=== PATIENT | female | born 1975 | race Caucasian/White ===

== ENCOUNTER → 2016-10-22 | Outpatient (CLI) | payer OTHER ==
--- NOTE | 2016-10-23 09:08 | MM ---
Reason for exam: screening (asymptomatic). Baseline mammogram. History: Patient has history of other cancer at age 20. Took hormonal contraceptives for 12 years. Physical Findings: Nurse did not find any significant physical abnormalities on exam. MG Screening Mammo w CAD Bilateral CC and MLO view(s) were taken. There are scattered fibroglandular densities. There is no discrete abnormality. These results were verbally communicated with the patient and result sheet given to the patient on 10/22/16. ASSESSMENT: Negative, BI-RAD 1 RECOMMENDATION: Routine screening mammogram of both breasts in 1 year.
== END ==
LOC: RADMAMWWP 15:31
PROVIDERS: ATTEND Family Medicine
DX: Z12.31 Encounter for screening mammogram for malignant neoplasm of breast (principal)

== ENCOUNTER → 2017-11-25 | Outpatient (CLI) | payer OTHER ==
--- NOTE | 2017-11-25 10:15 | XR ---
EXAMINATION TYPE: XR chest 2V DATE OF EXAM: 11/25/2017 COMPARISON: NONE TECHNIQUE: PA and lateral views submitted. HISTORY: Chronic cough FINDINGS: The lungs are clear and there is no pneumothorax, pleural effusion, or focal pneumonia. IMPRESSION: 1. No acute process.
== END | disposition home or self-care (01) ==
LOC: RADXRMAIN 09:45
PROVIDERS: ATTEND Physician Assistant
DX: R05 Cough (principal)
CPT/HCPCS: 71046

== ENCOUNTER → 2018-02-10 | Outpatient (CLI) | payer OTHER ==
--- NOTE | 2018-02-10 11:41 | XR ---
EXAMINATION TYPE: XR KUB DATE OF EXAM: 02/10/2018 COMPARISON: NONE HISTORY: Low back pain TECHNIQUE: One view abdominal series FINDINGS: The osseous structures are intact. The bowel gas pattern is nonspecific. Extensive retained fecal de bris throughout the colon. SI joints symmetric. Arthropathy of the hips noted. Correlate for femoral acetabular. IMPRESSION: 1. Nonspecific abdomen. Correlate for constipation. 2. Arthropathy of the hips correlate for femoral acetabular impingement.
== END | disposition home or self-care (01) ==
LOC: RADXRMAIN 10:51
PROVIDERS: ATTEND Physician Assistant
DX: M12.852 Other specific arthropathies, not elsewhere classified, left hip (principal); M12.851 Other specific arthropathies, not elsewhere classified, right hip
CPT/HCPCS: 74018

== ENCOUNTER → 2018-03-15 | Outpatient (CLI) | payer OTHER ==
--- NOTE | 2018-03-15 22:02 | MR ---
EXAMINATION TYPE: MR hip RT wo con DATE OF EXAM: 03/15/2018 COMPARISON: NONE HISTORY: 42-year-old female with Right hip pain TECHNIQUE: Multiplanar, multisequence images of the right hip were obtained without IV contrast. FINDINGS: No evidence for hip fracture or AVN. Physiologic joint fluid on both sides. There is a mild effusion within the right greater than left SI joints. The rectus femoris and hamstring origins as well as the iliopsoas insertions are intact. There is int ermediate signal at the right gluteal insertion with trace effusion in the trochanteric bursa. There is a small anterior femoral head neck junction osseous excrescence noted linear signal within t he acetabular labrum along the anterior superior quadrant and small 5 mm paralabral cyst at the 1:00 position. Normal course, caliber, and signal intensity of the sciatic nerves. Uterus and ovaries are visualized. No abnormal fluid collection in the pelvis. No suspicious bone marrow replacement. IMPRESSION: 1. Mild right-sided gluteal insertional tendinosis. 2. Findings suggest a small anterior superior acetabular labral tear with a tiny 5 mm superior parala bral cyst on the right. 3. 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 Correlate with symptoms on physical exam testing. 4. Mild right greater than left SI joint effusions.
== END | disposition home or self-care (01) ==
LOC: RADMRIMAIN 06:01
PROVIDERS: ATTEND Orthopaedic Surgery
DX: M67.853 Other specified disorders of tendon, right hip (principal); M16.11 Unilateral primary osteoarthritis, right hip

== ENCOUNTER → 2019-07-07 | Outpatient (CLI) | payer OTHER ==
[2019-07-07 11:16] LABS: Basophils # (A) 0.1 k/uL (0-0.2); Basophils % (A) 1 %; Eosinophils # (A) 0.4 k/uL (0-0.7); Eosinophils % (A) 3 %; HCT 46.3 % (34.0-46.0); HGB 15.5 gm/dL (11.4-16.0); Lymphocytes # (A) 2.5 k/uL (1.0-4.8); Lymphocytes % (A) 22 %; MCH 31.8 pg (25.0-35.0); MCHC 33.4 g/dL (31.0-37.0); MCV 95.1 fL (80.0-100.0); Mean Platelet Volume 7.2; Monocytes # (A) 0.5 k/uL (0-1.0); Monocytes % (A) 5 %; Neutrophils # (A) 7.7 k/uL (1.3-7.7); Neutrophils % (A) 68 %; Platelet Count 282 k/uL (150-450); RBC 4.87 m/uL (3.80-5.40); RDW 12.3 % (11.5-15.5); WBC 11.4 k/uL (3.8-10.6)
[2019-07-07 16:20] LABS: African American GFR (CKD) 120.4 (60.0-200.0); Albumin 4.2 g/dL (3.80-4.90); Albumin/Globulin Ratio 2.1 (1.60-3.17); Anion Gap 6.9 mmol/L (4.00-12.00); BUN/Creat Ratio 21.43 Ratio (12.00-20.00); Calcium 9.1 mg/dL (8.7-10.3); Carbon Dioxide 28.1 mmol/L (21.6-31.8); Chol/HDL Ratio 3.91; Non-African American GFR(CKD) 103.9 (60.0-200.0); Potassium 4.6 mmol/L (3.5-5.5); Total Bilirubin 0.4 mg/dL (0.2-1.2); Total Protein 6.2 g/dL (6.2-8.2)
[2019-07-07 18:45] LABS: Hemoglobin A1C 8.5 % (4.0-6.0)
== END | disposition home or self-care (01) ==
LOC: LABWHC1 09:43
PROVIDERS: ATTEND Family Medicine
DX: Z00.00 Encounter for general adult medical examination without abnormal findings (principal)
CPT/HCPCS: 36415; 80053; 80061; 83036; 84443; 85025

== ENCOUNTER → 2020-08-09 | Outpatient (CLI) | payer OTHER ==
[2020-08-09 12:10] LABS: % Iron Saturation 21.13 (12.00-45.00); African American GFR (CKD) 119.6 (60.0-200.0); Albumin 4.3 g/dL (3.80-4.90); Albumin/Globulin Ratio 2.15 (1.60-3.17); Anion Gap 7.2 mmol/L (4.00-12.00); BUN/Creat Ratio 21.43 Ratio (12.00-20.00); Basophils # (A) 0.07 X 10*3/uL (0.00-0.10); Basophils % (A) 0.7 %; Calcium 9.6 mg/dL (8.7-10.3); Carbon Dioxide 26.8 mmol/L (21.6-31.8); Chol/HDL Ratio 5.05; Eosinophils # (A) 0.24 X 10*3/uL (0.04-0.35); Eosinophils % (A) 2.5 %; HCT 45.5 % (37.2-46.3); HGB 15.2 g/dL (12.0-15.0); LDL Cholesterol,Calculated 105.4 mg/dL (0.0-131.0); Lymphocytes # (A) 2.88 X 10*3/uL (0.90-5.00); Lymphocytes % (A) 29.8 %; MCHC 33.4 g/dL (32.0-37.0); MCV 95.8 fL (80.0-97.0); Mean Platelet Volume 9.8 fL (9.5-12.2); Monocytes # (A) 0.61 X 10*3/uL (0.20-1.00); Monocytes % (A) 6.3 %; Neutrophils # (A) 5.82 X 10*3/uL (1.80-7.70); Neutrophils % (A) 60.3 %; Non-African American GFR(CKD) 103.2 (60.0-200.0); Platelet Count 255 X 10*3/uL (140-440); Potassium 4.5 mmol/L (3.5-5.5); RBC 4.75 X 10*6/uL (4.10-5.20); RDW 12.4 % (11.5-14.5); Total Bilirubin 0.2 mg/dL (0.2-1.2); Total Protein 6.3 g/dL (6.2-8.2); VLDL Calculation 48.6 mg/dL (5.00-40.00); WBC 9.66 X 10*3/uL (4.50-10.00)
[2020-08-09 12:20] LABS: Ferritin 42.2 ng/mL (10.0-291.0)
[2020-08-09 16:23] LABS: Hemoglobin A1C 9.3 % (4.0-6.0)
== END | disposition home or self-care (01) ==
LOC: LABWHC1 07:24
PROVIDERS: ATTEND Family Medicine
DX: Z00.00 Encounter for general adult medical examination without abnormal findings (principal); N95.9 Unspecified menopausal and perimenopausal disorder; R53.83 Other fatigue
CPT/HCPCS: 36415; 80053; 80061; 82306; 82607; 82672; 82728; 83036; 83540; 83550; 84403; 84443; 85025

== ENCOUNTER → 2021-09-04 | Outpatient (CLI) | payer OTHER ==
[2021-09-04 14:20] LABS: Basophils # (A) 0.07 X 10*3/uL (0.00-0.10); Basophils % (A) 0.6 %; Eosinophils # (A) 0.22 X 10*3/uL (0.04-0.35); HCT 42.4 % (37.2-46.3); HGB 14.3 g/dL (12.0-15.0); Immature Grans, Automated 0.2 %; Lymphocytes # (A) 2.44 X 10*3/uL (0.90-5.00); Lymphocytes % (A) 22.2 %; MCH 31.9 pg (27.0-32.0); MCHC 33.7 g/dL (32.0-37.0); MCV 94.6 fL (80.0-97.0); Mean Platelet Volume 9.5 fL (9.5-12.2); Monocytes # (A) 0.54 X 10*3/uL (0.20-1.00); Monocytes % (A) 4.9 %; NRBC Per 100 WBC 0 /100 WBCS (0.0-0.0); Neutrophils # (A) 7.69 X 10*3/uL (1.80-7.70); Neutrophils % (A) 70.1 %; Platelet Count 230 X 10*3/uL (140-440); RBC 4.48 X 10*6/uL (4.10-5.20); WBC 10.98 X 10*3/uL (4.50-10.00)
[2021-09-04 14:59] LABS: ALT 27 U/L (8-44); AST 23 U/L (13-35); African American GFR (CKD) 120.2 (60.0-200.0); Albumin 4.1 g/dL (3.8-4.9); Albumin/Globulin Ratio 1.54 (1.60-3.17); Alkaline Phosphatase 66 U/L (41-126); BUN/Creat Ratio 23.74 Ratio (12.00-20.00); Calcium 9.2 mg/dL (8.7-10.3); Carbon Dioxide 22.9 mmol/L (20.0-27.5); Chloride 103 mmol/L (96-109); Chol/HDL Ratio 5.06 Ratio; Globulin 2.7 g/dL (1.6-3.3); Glucose 123 mg/dL (70-110); LDL Cholesterol,Calculated 134.1 mg/dL (0.0-131.0); Non-African American GFR(CKD) 103.7 (60.0-200.0); Potassium 4.2 mmol/L (3.5-5.5); Sodium 140 mmol/L (135-145); Total Protein 6.7 g/dL (6.2-8.2)
--- NOTE | 2021-09-05 14:40 | MM ---
Reason for exam: screening (asymptomatic). Last mammogram was performed 4 years and 10 months ago. History: Patient has history of other cancer at age 20. Took other hormone for 6 months. Physical Findings: A clinical breast exam by your physician is recommended on an annual basis and results should be correlated with mammographic findings. MG 3D Screening Mammo W/Cad Bilateral CC and MLO view(s) were taken. Prior study comparison: October 22, 2016, bilateral MG screening mammo w CAD. The breast tissue is heterogeneously dense. This may lower the sensitivity of mammography. Benign appearing calcifications in the left breast. No significant changes when compared with prior studies. ASSESSMENT: Benign, BI-RAD 2 RECOMMENDATION: Routine screening mammogram of both breasts in 1 year.
== END | disposition home or self-care (01) ==
LOC: RADMAMWWP 07:52
PROVIDERS: ATTEND Family Medicine
DX: Z00.00 Encounter for general adult medical examination without abnormal findings (principal); Z12.31 Encounter for screening mammogram for malignant neoplasm of breast
CPT/HCPCS: 77063; 77067; 80053; 80061; 84443; 85025

== ENCOUNTER 2021-10-03 06:54 | Day surgery (SDC) | payer OTHER ==
[2021-10-01 16:32] VITALS: BMI 30.2
[~2021-10-03 06:54] MED LIST: LACTATED RINGERS 1,000 ML IV SCH; LIDOCAINE 1% (10MG/ML) FOR IV START INTRADERMA PRN
[2021-10-03 07:30] LABS: Glucose,Whole Blood 123 mg/dL (75-99)
[2021-10-03 07:31] VITALS: TEMP 97.3
[2021-10-03] MEDS ORDERED: LIDOCAINE 2% INJ 20 MG/ML (2 ML VIAL) ONE (07:47)
[2021-10-03] MEDS ORDERED: PROPOFOL 10 MG/ML 20 ML VIAL IV ONE (07:47)
--- NOTE | 2021-10-03 08:01 | P.PCN ---
Date of Procedure: 10/03/21 Procedure(s) Performed: BRIEF HISTORY: Patient is a 46-year-old pleasant white female scheduled for an elective colonoscopy as a part of evaluation of positive cologuard. She denies any GI symptoms. PROCEDURE PERFORMED: Colonoscop with snare polypectomy . PREOPERATIVE DIAGNOSIS: Positive cologuard. IV sedation per Anesthesia. PROCEDURE: After informed consent was obtained, the patient, was brought into the endoscopy unit. IV sedation was administered by Anesthesia under continuous monitoring. Digital rectal examination was normal. Initially the Olympus CF-160 flexible video colonoscope was then inserted in the rectum, gradually advanced into the cecum without any difficulty. Careful examination was performed as the scope was gradually being withdrawn. Ileocecal valve and the appendiceal orifice were visualized and appeared normal. Prep was excellent. Mucosa of the cecum, ascending colon, transverse colon, descending colon, normal. The sigmoid: There was a 7 mm sessile polyp removed by snare polypectomy. Rest of the sigmoid colon, and rectum appeared normal. Retroflexion was performed in the rectum and no lesions were seen. The patient tolerated the procedure well. IMPRESSION: 7 mm sigmoid: Polyp status post polypectomy Rest of the colon appeared normal. RECOMMENDATIONS: Findings of this examination were discussed with the patient as a family. She was advised to follow with the biopsy results. If the biopsy reveals adenoma she can have a repeat colonoscopy in 5 years..
[2021-10-03 08:08] VITALS: PULSE 78; RESP 15
[2021-10-03 08:32] VITALS: BP 144/81
== END 2021-10-03 08:45 | disposition home or self-care (01) ==
LOC: ORWHC2ENDO 06:54
PROVIDERS: ATTEND Internal Medicine Gastroenterology
DX: K63.5 Polyp of colon (principal)
CPT/HCPCS: 45385; 81025; 88305; J2704; J2001

== ENCOUNTER → 2022-01-10 | Outpatient (CLI) | payer OTHER ==
[2022-01-10 16:19] LABS: Luteinizing Hormone 44.2 mIU/mL
== END | disposition home or self-care (01) ==
LOC: LABWHC1 10:14
PROVIDERS: ATTEND Family Medicine
DX: E89.41 Symptomatic postprocedural ovarian failure (principal)
CPT/HCPCS: 36415; 82040; 82672; 83001; 83002; 84270; 84403

== ENCOUNTER → 2022-11-02 | Outpatient (CLI) | payer OTHER ==
[2022-11-02 16:16] LABS: ALT 30 U/L (8-44); AST 19 U/L (13-35); Albumin 4.7 d/dL (3.8-4.9); Albumin/Globulin Ratio 1.62 Ratio (1.60-3.17); Alkaline Phosphatase 86 U/L (41-126); BUN/Creat Ratio 15.86 Ratio (12.00-20.00); Blood Urea Nitrogen 11.1 mg/dL (9.0-27.0); Carbon Dioxide 25.5 mmol/L (21.6-31.8); Chloride 102 mmol/L (96-109); Chol/HDL Ratio 5.02 Ratio; Globulin 2.9 d/dL (1.6-3.3); Glucose 133 mg/dL (70-110); Potassium 4.8 mmol/L (3.5-5.5); Sodium 141 mmol/L (135-145); Total Bilirubin <0.2 mg/dL (0.3-1.2); Total Protein 7.6 d/dL (6.2-8.2)
[2022-11-02 16:45] LABS: HCT 50.5 % (37.2-46.3); HGB 17.2 d/dL (12.0-15.0); MCH 32.3 pg (27.0-32.0); MCHC 34.1 d/dL (32.0-37.0); MCV 94.9 FL (80.0-97.0); Mean Platelet Volume 9.9 FL (9.5-12.2); NRBC Per 100 WBC 0 X 10*3/uL (0.00-0.01); Platelet Count 272 X 10*3/uL (140-440); RBC 5.32 X 10*6/uL (4.10-5.20); RDW 12.8 % (11.5-14.5); WBC 10.88 X 10*3/uL (4.50-10.00)
== END | disposition home or self-care (01) ==
LOC: LABWHC1 10:10
PROVIDERS: ATTEND Family Medicine
DX: Z00.00 Encounter for general adult medical examination without abnormal findings (principal); E89.41 Symptomatic postprocedural ovarian failure; E11.9 Type 2 diabetes mellitus without complications
CPT/HCPCS: 36415; 80053; 80061; 82043; 82570; 82626; 82672; 84402; 84443; 85027

== ENCOUNTER → 2022-11-11 | Outpatient (CLI) | payer OTHER ==
--- NOTE | 2022-11-12 08:54 | MM ---
Reason for Exam: Screening (asymptomatic). Last mammogram was performed 1 year(s) and 2 month(s) ago. Patient History: Menarche at age 10. First Full-Term at age 16. Other cancer, age 20. Risk Values: Meggan 5 year model risk: 0.7%. NCI Lifetime model risk: 6.6%. Prior Study Comparison: 10/22/2016 Bilateral Screening Mammogram, [facility]. 09/04/2021 Bilateral Screening Mammogram, [facility]. Tissue Density: There are scattered fibroglandular densities. Findings: Analyzed By CAD. There is no suspicious group of microcalcifications or new suspicious mass in either breast. Overall Assessment: Negative, BI-RAD 1 Management: Screening Mammogram of both breasts in 1 year. A clinical breast exam by your physician is recommended on an annual basis and results should be correlated with mammographic findings. Note on Meggan scores and lifetime risk: 1. A Meggan score greater than 3% is considered moderate risk. If this is the case, consider specialist referral to assess eligibility for a risk reducing agent. If overall lifetime risk for the development of breast cancer is 20% or higher, the patient may qualify for future screening with alternating mammogram and breast MRI. Electronically signed and approved by: Abram Haney D.O.
== END | disposition home or self-care (01) ==
LOC: RADMAMWWP 16:01
PROVIDERS: ATTEND Family Medicine
DX: Z12.31 Encounter for screening mammogram for malignant neoplasm of breast (principal)
CPT/HCPCS: 77063; 77067

== ENCOUNTER → 2023-09-09 | Outpatient (CLI) | payer OTHER ==
--- NOTE | 2023-09-09 18:07 | XR ---
PROCEDURE: XR forearm LT - 2V DATE AND TIME: 09/09/2023 5:27 PM CLINICAL INDICATION: [facility]; S63.502A UNSPECIFIED SPRAIN OF L S60.222A S50.12XA TECHNIQUE: Department protocol COMPARISON: None FINDINGS: No acute soft tissue findings. No acute fracture/malalignment. No focal osseous lesions. IMPRESSION: No acute radiographic process.
--- NOTE | 2023-09-09 18:08 | XR ---
PROCEDURE: XR hand complete LT - 3V DATE AND TIME: 09/09/2023 5:27 PM CLINICAL INDICATION: [facility]; S63.502A UNSPECIFIED SPRAIN OF L S60.222A S50.12XA TECHNIQUE: Department protocol COMPARISON: None FINDINGS: No acute soft tissue findings. No acute fracture/malalignment. No focal osseous lesions. IMPRESSION: No acute radiographic process.
--- NOTE | 2023-09-09 18:12 | XR ---
PROCEDURE: XR wrist complete LT - 4V DATE AND TIME: 09/09/2023 5:27 PM CLINICAL INDICATION: [facility]; S63.502A UNSPECIFIED SPRAIN OF L S60.222A S50.12XA TECHNIQUE: Department protocol COMPARISON: None FINDINGS: No acute soft tissue findings. No acute fracture/malalignment. No focal osseous lesions. IMPRESSION: No acute radiographic process.
== END | disposition home or self-care (01) ==
LOC: RADXRMAIN 16:52
PROVIDERS: ATTEND Emergency Medicine
DX: S63.502A Unspecified sprain of left wrist, initial encounter (principal); S60.222A Contusion of left hand, initial encounter; S50.12XA Contusion of left forearm, initial encounter; W19.XXXA Unspecified fall, initial encounter

== ENCOUNTER → 2023-09-17 | Outpatient (CLI) | payer OTHER ==
--- NOTE | 2023-09-17 12:09 | XR ---
EXAMINATION TYPE: XR wrist complete LT DATE OF EXAM: 09/17/2023 11:37 AM CLINICAL INDICATION:Female, 48 years old with history of S63.502D UNSPECIFIED SPRAIN OF LEFT WRIST, S UBSEQU; [facility] COMPARISON: 09/09/2023 TECHNIQUE: XR wrist complete LT; examined in the Frontal, navicular, lateral, and oblique. FINDINGS: No acute osseous pathology, joint dislocation, or joint effusion. No evidence of any soft tissue swelling is seen. IMPRESSION: No acute osseous pathology.
== END | disposition home or self-care (01) ==
LOC: RADXRMAIN 11:25
PROVIDERS: ATTEND Emergency Medicine
DX: S63.502D Unspecified sprain of left wrist, subsequent encounter (principal)

== ENCOUNTER → 2023-11-03 | Outpatient (CLI) | payer OTHER ==
--- NOTE | 2023-11-11 08:31 | MR ---
EXAM: MR wrist LT wo/w con DATE OF EXAM: 11/03/2023 COMPARISON: Left wrist radiograph 09/09/2023 and 09/17/2023 HISTORY: Left wrist pain, swelling and limited movement x2 months TECHNIQUE: Multiplanar, multisequence images of the left wrist were acquired without and with intrave nous contrast. FINDINGS: BONES/JOINTS: Nondisplaced fracture of the distal radius, predominantly transversely oriented, but wi th a longitudinal component extending into the radiocarpal joint. The transverse component extends in to the distal radioulnar joint. Remainder of the bone marrow signal is normal. Slight joint effusion of the distal radioulnar joint. Normal alignment. No ulnar variance. Distal radioulnar joint is normal. LIGAMENTS: Scapholunate and lunotriquetral ligaments are normal. Extrinsic carpal ligaments are niesha l. Triangular fibrocartilaginous complex is normal. TENDONS: Flexor tendons are normal. Trace fluid within the extensor carpi ulnaris tendon sheath, rela ting to tenosynovitis. SOFT TISSUES: Carpal tunnel is normal. Guyon's canal is normal. 5 mm ganglion cyst projecting from th e volar aspect of the radiocarpal joint adjacent to the radial-scaphoid articulation. NEUROVASCULAR: The median nerve is normal in size, signal, and location. The ulnar nerve is normal in size, signal, and location. Vascular structures are normal OTHER: No mass or abnormal enhancement.. IMPRESSION: 1. Nondisplaced intra-articular fracture of the distal radius. 2. Trace distal radioulnar joint effusion. 3. Extensor carpi ulnaris tenosynovitis. 4. Radial/volar 5 mm ganglion cyst.
== END | disposition home or self-care (01) ==
LOC: RADMRIMAIN 17:56
PROVIDERS: ATTEND Orthopaedic Surgery
DX: M67.432 Ganglion, left wrist (principal); S52.572D Other intraarticular fracture of lower end of left radius, subsequent encounter for closed fracture with routine healing; S63.522D Sprain of radiocarpal joint of left wrist, subsequent encounter; M25.432 Effusion, left wrist; M65.842 Other synovitis and tenosynovitis, left hand; X58.XXXD Exposure to other specified factors, subsequent encounter
CPT/HCPCS: 73223; A9585

== ENCOUNTER → 2023-12-11 | Outpatient (CLI) | payer OTHER | END | disposition home or self-care (01) | LOC: LABWHC1 08:48 | PROVIDERS: ATTEND Family Medicine | DX: E78.5 Hyperlipidemia, unspecified (principal) | CPT/HCPCS: 36415; 80053; 80061; 85025 ==

== ENCOUNTER → 2024-06-23 | Outpatient (CLI) | payer OTHER ==
--- NOTE | 2024-06-23 13:48 | MM ---
Reason for Exam: Screening (asymptomatic). Last mammogram was performed 1 year(s) and 7 month(s) ago. Patient History: Menarche at age 10. First Full-Term at age 16. Other cancer, age 20. Risk Values: Meggan 5 year model risk: 0.7%. NCI Lifetime model risk: 6.4%. Prior Study Comparison: 10/22/2016 Bilateral Screening Mammogram, [facility]. 09/04/2021 Bilateral Screening Mammogram, [facility]. 11/11/2022 Bilateral MG 3D screening mammo w/cad, [facility]. Tissue Density: There are scattered areas of fibroglandular density. Findings: Analyzed By CAD. Right breast: There is no suspicious group of microcalcifications or new suspicious mass. Left breast: There is no suspicious group of microcalcifications or new suspicious mass. Overall Assessment: Negative, BI-RAD 1 Management: Screening Mammogram of both breasts in [address] [facility] will attempt to contact patient to return for supplemental views and ultrasound if indicated. Patient should continue monthly self-breast exams. A clinical breast exam by your physician is recommended on an annual basis. This exam should not preclude additional follow-up of suspicious palpable abnormalities. Note on Meggan scores and lifetime risk: 1. A Meggan score greater than 3% is considered moderate risk. If this is the case, consider specialist referral to assess eligibility for a risk reducing agent. 2. If overall lifetime risk for the development of breast cancer is 20% or higher, the patient may qualify for future screening with alternating mammogram and breast MRI. [facility], , 06/23/2024 1:44 PM. Electronically signed and approved by: Yogesh Gilbert DO
== END | disposition home or self-care (01) ==
LOC: RADMAMWWP 13:26
PROVIDERS: ATTEND Family Medicine
DX: Z12.31 Encounter for screening mammogram for malignant neoplasm of breast (principal); R92.323 Mammographic fibroglandular density, bilateral breasts
CPT/HCPCS: 77063; 77067

== ENCOUNTER → 2024-11-10 | Outpatient (CLI) | payer OTHER ==
[2024-11-10 15:09] LABS: Basophils # (A) 0.10 X 10*3/uL (0.00-0.10); Basophils % (A) 0.9 %; Eosinophils # (A) 0.23 X 10*3/uL (0.04-0.35); Eosinophils % (A) 2.1 %; HCT 44.4 % (37.2-46.3); HGB 14.7 g/dL (12.0-15.0); Immature Grans, Automated 0.30 %; Lymphocytes # (A) 2.69 X 10*3/uL (0.90-5.00); Lymphocytes % (A) 24.1 %; MCH 31.6 pg (27.0-32.0); MCHC 33.1 g/dL (32.0-37.0); MCV 95.5 FL (80.0-97.0); Monocytes # (A) 0.69 X 10*3/uL (0.20-1.00); Monocytes % (A) 6.2 %; NRBC Per 100 WBC 0 X 10*3/uL (0.00-0.01); Neutrophils # (A) 7.40 X 10*3/uL (1.80-7.70); Neutrophils % (A) 66.4 %; Platelet Count 263 X 10*3/uL (140-440); RBC 4.65 X 10*6/uL (4.10-5.20); RDW 13.2 % (11.5-14.5); WBC 11.14 X 10*3/uL (4.50-10.00)
[2024-11-10 15:34] LABS: ALT 15 U/L (8-44); AST 16 U/L (13-35); Albumin 4.2 g/dL (3.8-4.9); Albumin/Globulin Ratio 1.83 Ratio (1.60-3.17); Alkaline Phosphatase 61 U/L (41-126); Anion Gap 11.10 mmol/L (4.00-12.00); BUN/Creat Ratio 19.17 Ratio (12.00-20.00); Blood Urea Nitrogen 11.5 mg/dL (9.0-27.0); Calcium 9.5 mg/dL (8.7-10.3); Carbon Dioxide 25.9 mmol/L (21.6-31.8); Chloride 106 mmol/L (96-109); Cholesterol 204.00 mg/dL (0.00-200.00); Globulin 2.3 g/dL (1.6-3.3); Glucose 104 mg/dL (70-110); HDL Cholesterol 44.70 mg/dL (40.00-60.00); LDL Cholesterol,Calculated 139.3 mg/dL (0.0-131.0); Potassium 4.5 mmol/L (3.5-5.5); Sodium 143 mmol/L (135-145); Total Protein 6.5 g/dL (6.2-8.2); Triglycerides 99.90 mg/dL (0.00-149.00); VLDL Calculation 19.98 mg/dL (5.00-40.00)
== END | disposition home or self-care (01) ==
LOC: LABWHC1 09:39
PROVIDERS: ATTEND Family Medicine
DX: Z00.00 Encounter for general adult medical examination without abnormal findings (principal); E11.9 Type 2 diabetes mellitus without complications
CPT/HCPCS: 36415; 80053; 80061; 82570; 84156; 84443; 85025